=== PATIENT | female | born 1950 | race Caucasian/White ===

== ENCOUNTER 2017-04-24 18:30 | Emergency (ER) | payer OTHER ==
[2017-04-24 18:43] VITALS: TEMP 97.7
[2017-04-24] MEDS ORDERED: ACETAMINOPHEN 500 MG TAB PO ONE (19:32)
--- NOTE | 2017-04-24 19:39 | EDPHY ---
HPI/HX/ROS/PE/MDM Narrative: CHIEF COMPLAINT: Head injury HISTORY OF PRESENT ILLNESS: The patient is a 66 y/o female with a history of breast cancer and tension headaches complaining of headache, neck pain, nausea, and light sensitivity after a fall from standing. She was outside yesterday when a dog struck her, knocking her to the ground. She fell backward striking the back of her head on concrete. She denies loss of consciousness. After the incident she developed a headache and neck pain. Today, she woke up without a headache. When she stood up she began feeling unsteady and nauseated. She soon developed a headache (rated 4-5/10) and neck pain. She has associated light sensitivity. She denies weakness, numbness, tingling, or shooting sensation in the extremities, abdominal pain, vomiting, or other associated symptoms. Her symptoms are worse with movement or reading. Her symptoms improve with sleep. No fever, chills, chest pain, shortness of breath, palpitations, vomiting, diarrhea, urinary complaints, lightheadedness. REVIEW OF SYSTEMS: Aside from elements discussed in the HPI, a comprehensive 10-point review of systems was reviewed and is negative. PAST MEDICAL HISTORY: Breast cancer, tension headaches. No anticoagulants. SOCIAL HISTORY: at bedside, lives in [place], retired, former physical therapist VITAL SIGNS: Reviewed by me GENERAL: Well-developed, well-nourished, resting comfortably in no respiratory distress. HEENT: Tender hematoma on the occipital region. No laceration or abrasion. Eyes : No icterus, no injection. PERRL, EOMI. Mouth: moist mucous membranes. No erythema or lesions. Neck: No midline tenderness, tenderness paraspinally bilaterally, supple with no adenopathy. Patient moving neck without difficulty prior to exam. LUNGS: Clear to auscultation bilaterally, no wheezes, rhonchi or rales. CARDIAC: Regular rate and rhythm, no rubs, murmurs or gallops. ABDOMEN: Soft, nontender, nondistended, bowel sounds normal. BACK: No CVA tenderness. EXTREMITIES: No trauma. No edema. Range of motion is normal throughout. NEURO: Alert and oriented x3, cranial nerves are intact throughout, normal motor , normal sensation. Normal finger to nose and heel to razo. Normal gait. SKIN: Warm and dry, no rash. PSYCHIATRIC: Normal mentation, no agitation ED Course: The patient presents with headache, neck pain, nausea, and light sensitivity after a fall yesterday. She denies loss of consciousness. On exam she does not have any neurologic deficits. She had a hematoma to the occipital region and paraspinal tenderness. Plan for CT imaging. Pain medication and anti-nausea or vertigo medication as needed for symptoms. CTs Neg for acute process. DW patient. She is reassured. Will take tylenol as needed. Referred to Dr Márquez for concussion follow up as needed. The patient agrees to this course of action. MDM: Differential diagnosis for the patient's injury was considered including but not limited to contusion, abrasion, laceration, head injury, cervical spine injury, intracranial hemorrhage, cerebral contusion, concussion, skull fracture. - Data Points Imaging Results: Impression: Normal noncontrast CT of the brain. Results called to Dr. Soni Villareal at 8:00 PM at the time of the interpretation. Dictated By: Abdullahi Mijares MD CT Cervical Spine: Impression: Multilevel cervical degenerative disk disease. Minimal remote compression deformity of the superior endplate of T1. No acute fracture or subluxation identified. Results called to Dr. Villareal at 8:00 p.m. Dictated By : Abdullahi Mijares MD Medications Given: Discontinued Medications Acetaminophen (Tylenol) 1,000 mg PO EDNOW ONE Stop: 04/24/17 19:33 Last Admin: 04/24/17 20:03 Dose: 1,000 mg General Time Seen by Provider: 04/24/17 19:11 Initial Vital Signs: Initial Vital Signs Temperature (C) 36.5 C 04/24/17 18:39 Heart Rate 67 04/24/17 18:39 Respiratory Rate 18 04/24/17 18:39 Blood Pressure 129/77 H 04/24/17 18:39 O2 Sat (%) 98 04/24/17 18:39 O2 Delivery Mode Room Air Allergies/Adverse Reactions: codeine Allergy (Verified 04/24/17 18:56) NSAIDS (Non-Steroidal Anti-Inflamma Allergy (Verified 04/24/17 18:56) Sulfa (Sulfonamide Antibiotics) Allergy (Verified 04/24/17 18:38) Home Medications: Medication Instructions Recorded Multiple Vitamin 04/24/17 Departure - Departure Disposition: Home, Routine, Self-Care Clinical Impression: Concussion Qualifiers: Encounter type: initial encounter Loss of consciousness presence/duration: without LOC Qualified Code(s): S06.0X0A - Concussion without loss of consciousness, initial encounter Headache Qualifiers: Headache type: post-traumatic Headache chronicity pattern: acute headache Intractability: not intractable Qualified Code(s): G44.319 - Acute post- traumatic headache, not intractable Condition: Good Instructions: Concussion (ED), Post Concussion Syndrome (ED) Additional Instructions: 1. Take Tylenol as needed for pain. 2. "Brain rest" - Limit screen time while symptoms are present. This includes phones, computers, TV, video games, etc. 3. Physical rest while symptoms are present. Avoid any activities that could lead to a repeat head injury for at least two weeks or longer if symptoms persist. Ex. no contact sports, skiing, bicycling. 4. Slowly advance activities as tolerated. If you begin to experience headaches , confusion, sensitivity to light, nausea, or other worsening of symptoms you need to reduce your activities. Take time off from classes if you are able to. 5. Follow up with Dr. Márquez, head injury specialist, for symptoms that persist for more than 10 days. 6. Return to the ED for severe pain, inability to walk, weakness or numbness on one side of your body, or other worsening of condition. Referrals: ANTONIA ALEXANDER [Other] - As per Instructions Meaghan Márquez MD [Medical Doctor] - As per Instructions Report Scribed for: Soni Villareal Report Scribed by: Autumn Hernandez Date of Report: 04/24/17 Time of Report: 19:40 Physician Review and Approval Statement: Portions of this note were transcribed by a registered medical assistant. I personally performed a history, physical exam, medical decision making, and confirmed accuracy of information the transcribed note.
[2017-04-24 20:30] VITALS: BP 145/80
[2017-04-24 21:10] VITALS: PULSE 70; RESP 16; O2SAT 96
== END 2017-04-24 21:08 | disposition home or self-care (01) ==
DX: S06.0X0A Concussion without loss of consciousness, initial encounter (principal); G44.319 Acute post-traumatic headache, not intractable; Z85.3 Personal history of malignant neoplasm of breast; W01.198A Fall on same level from slipping, tripping and stumbling with subsequent striking against other object, initial encounter

== ENCOUNTER 2017-04-30 11:16 | Emergency (ER) | payer OTHER ==
[2017-04-30 11:24] VITALS: RESP 16; TEMP 98.1
--- NOTE | 2017-04-30 11:54 | EDPHY ---
HPI/HX/ROS/PE/MDM Narrative: CHIEF COMPLAINT: Headache HPI: This patient is a non-anticoagulated 66 y/o female complaining of worsening headache following a head injury. She was evaluated in this emergency department 04/24/17 following a fall the previous day in which she struck the back of her head on concrete. CT imaging at that time was negative for acute processes. She was discharged with a referral to a concussion specialist for further evaluation and treatment. Yesterday she felt well and had been improving each day since the incident so resumed some of her normal activities. Today, she woke around 2-3am with pain in her neck and head. The discomfort is in her middle and upper trapezius muscles as well as her occipital area. She endorses a painful sensation in her scalp as well. This kept her awake until 5am , when she took Tylenol. She was able to sleep again from 6-8am but her headache continued after this. She feels better if she relaxes in a dark room. 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 She has not been reevaluated by a primary care physician yet, but has an appointment with Dr. Márquez, concussion specialist, this . REVIEW OF SYSTEMS: Aside from elements discussed in the HPI, a comprehensive 10-point review of systems was reviewed and is negative. PMH: Breast cancer, tension headaches. No anticoagulants, but has chronic low INR. SOCIAL HISTORY: at bedside, lives in [place], retired, former physical therapist PHYSICAL EXAM: General:Patient is alert, in no acute distress. ENT:Eyes are normal to inspection. ENT inspection normal. Neck: Normal inspection. Full range of motion. Respiratory:No respiratory distress. Breath sounds normal bilaterally. Cardiovascular: Regular rate and rhythm. Strong peripheral pulses. Normal cap refill. Abdomen:The abdomen is nontender to palpation. There are no peritoneal signs. There are normal bowel sounds. Back: Normal to inspection. No tenderness to palpation. Skin: Normal color. No rash. Warm and dry. Extremities: Normal appearance. Full range of motion. Neuro: Oriented x3. Normal motor function. Normal sensory function. No pronator drift. ED Course: 66 y/o female with recent head injury 04/24/17 presents with worsening headache. Patient is neurologically intact on exam. Discussed risks and benefits of repeat CT head. Given negative CT 04/24, plan for conservative medical treatment at this time. The patient is comfortable with this plan, especially as she has had many prior CTs with her history of breast cancer. Discussed pain management. The patient states she reacts poorly to NSAID medications. IV established. Plan to administer 10mg IV Reglan, 25mg IV Benadryl , and 1L IV NS for symptom relief. Plan for labs including CBC, BMP. Laboratory studies unremarkable. 13:30 Reassessed patient. Patient's headache is resolved following medication administration. Plan to d/c home in good condition. She will follow up with concussion specialist and primary care as planned. MDM: This patient presents with symptoms that appear consistent with post-concussion syndrome. She has a normal neurologic exam and no report of deficit. Wee had an extensive discussion about further ED workup, to include likely repeat CT imaging to rule out additional trauma, but patient declines this. She is now asymptomatic after reglan and IVNS. She has an appointment in place to follow- up with Dr. Márquez regarding her symptoms. She promises to return for change in condition or failure to improve. - Data Points Laboratory Results: Laboratory Results 04/30/17 12:20 04/30/17 12:20 04/30/17 04/30/17 12:20 12:20 WBC 4.09 10^3/uL 10^3/uL (3.80-9.50) RBC 4.80 10^6/uL 10^6/uL (4.18-5.33) Hgb 13.8 g/dL g/dL (12.6-16.3) Hct 41.8 % % (38.0-47.0) MCV 87.1 fL fL (81.5-99.8) MCH 28.8 pg pg (27.9-34.1) MCHC 33.0 g/dL g/dL (32.4-36.7) RDW 13.5 % % (11.5-15.2) Plt Count 137 10^3/uL L 10^3/uL (150-400) MPV 10.8 fL fL (8.7-11.7) Neut % (Auto) 53.3 % % (39.3-74.2) Lymph % (Auto) 36.9 % % (15.0-45.0) [place] % (Auto) 7.1 % % (4.5-13.0) Eos % (Auto) 2.0 % % (0.6-7.6) Baso % (Auto) 0.5 % % (0.3-1.7) Nucleat RBC Rel Count 0.0 % % (0.0-0.2) Absolute Neuts (auto) 2.18 10^3/uL 10^3/uL (1.70-6.50) Absolute Lymphs (auto) 1.51 10^3/uL 10^3/uL (1.00-3.00) Absolute Monos (auto) 0.29 10^3/uL L 10^3/uL (0.30-0.80) Absolute Eos (auto) 0.08 10^3/uL 10^3/uL (0.03-0.40) Absolute Basos (auto) 0.02 10^3/uL 10^3/uL (0.02-0.10) Absolute Nucleated RBC 0.00 10^3/uL 10^3/uL (0-0.01) Immature Gran % 0.2 % % (0.0-1.1) Immature Gran # 0.01 10^3/uL 10^3/uL (0.00-0.10) Sodium 142 mEq/L mEq/L (134-144) Potassium 4.0 mEq/L mEq/L (3.5-5.2) Chloride 104 mEq/L mEq/L (97-110) Carbon Dioxide 27 mEq/l mEq/l (22-31) Anion Gap 11 mEq/L mEq/L (8-16) BUN 13 mg/dL mg/dL (7-23) Creatinine 0.6 mg/dL mg/dL (0.6-1.0) Estimated GFR > 60 Glucose 96 mg/dL mg/dL (70-100) Calcium 10.3 mg/dL mg/dL (8.5-10.4) Medications Given: Discontinued Medications Diphenhydramine HCl (Benadryl Injection) 25 mg IVP EDNOW ONE Stop: 04/30/17 12:10 Last Admin: 04/30/17 12:24 Dose: 25 mg Sodium Chloride (Ns) 1,000 mls @ 0 mls/hr IV ONCE ONE; Wide Open PRN Reason: Protocol Stop: 04/30/17 12:10 Last Admin: 04/30/17 12:23 Dose: 1,000 mls Metoclopramide HCl (Reglan Injection) 10 mg IVP EDNOW ONE Stop: 04/30/17 12:10 Last Admin: 04/30/17 12:25 Dose: 10 mg General Time Seen by Provider: 04/30/17 11:40 Initial Vital Signs: Initial Vital Signs Temperature (C) 36.7 C 04/30/17 11:21 Heart Rate 77 04/30/17 11:21 Respiratory Rate 16 04/30/17 11:21 Blood Pressure 149/77 H 04/30/17 11:21 O2 Sat (%) 97 04/30/17 11:21 O2 Delivery Mode Room Air Allergies/Adverse Reactions: codeine Allergy (Verified 04/30/17 11:20) NSAIDS (Non-Steroidal Anti-Inflamma Allergy (Verified 04/30/17 11:20) Sulfa (Sulfonamide Antibiotics) Allergy (Verified 04/30/17 11:20) Home Medications: Medication Instructions Recorded Multiple Vitamin 04/24/17 Departure - Departure Disposition: Home, Routine, Self-Care Clinical Impression: Post concussion syndrome Condition: Good Instructions: Post Concussion Syndrome (ED) Additional Instructions: 1. Follow up with Dr. Márquez and your primary care provider as planned. 2. Return to the Emergency Department for severe headache, vomiting, vision changes, confusion, fever or other concerns. Referrals: ANTONIA ALEXANDER [Other] - As per Instructions Meaghan Márquez MD [Medical Doctor] - As per Instructions Report Scribed for: Isaac Sandhu Report Scribed by: Tiki Chacon Date of Report: 04/30/17 Time of Report: 12:04 Physician Review and Approval Statement: Portions of this note were transcribed by an ED scribe. I personally performed the history, physical exam, and medical decision making; and confirm the accuracy of the information in the transcribed note.
[2017-04-30] MEDS ORDERED: METOCLOPRAMIDE 10 MG/2 ML VIAL IVP ONE (12:09)
[2017-04-30] MEDS ORDERED: NS 1,000 ML IV ONE (12:09)
[2017-04-30 12:29] LABS: PLATELET COUNT 137 10^3/uL (150-400)
[2017-04-30 12:36] VITALS: PULSE 76
[2017-04-30 13:51] VITALS: BP 112/60; O2SAT 96
== END 2017-04-30 13:51 | disposition home or self-care (01) ==
DX: G44.309 Post-traumatic headache, unspecified, not intractable (principal); F07.81 Postconcussional syndrome; E86.9 Volume depletion, unspecified; Z85.3 Personal history of malignant neoplasm of breast
CPT/HCPCS: 96361; 96374; 96375; 99284; J1200; J2765

== ENCOUNTER 2017-09-04 13:57 | Emergency (ER) | payer OTHER ==
--- NOTE | 2017-09-04 14:20 | EDPHY ---
H & P Stated Complaint: mechanical fall hit head no loc--f/h lac, L wrist pain Source: Patient - Medical/Surgical History Hx Asthma: No Hx Chronic Respiratory Disease: No Hx Diabetes: No Hx Cardiac Disease: No Hx Renal Disease: No Hx Cirrhosis: No Hx Alcoholism: No Hx HIV/AIDS: No Hx Splenectomy or Spleen Trauma: No Other PMH: breast cancer. pelvic fx - Social History Smoking Status: Never smoked Time Seen by Provider: 09/04/17 14:20 HPI/ROS: HPI CHIEF COMPLAINT: Mechanical trip and fall, head injury, head laceration HISTORY OF PRESENT ILLNESS: Patient very pleasant 67-year-old female, she presents emergency room by private vehicle after she tripped and fell at the [facility]. States she tripped over grandson. She fell on her outstretched hands. She now complains of left lateral wrist pain. Left elbow pain. Additionally she had head strike against the pavement. She sustained a left forehead laceration. No LOC. She arrives by private vehicle GCS 15, alert or x4. Denies any chest pain or shortness of breath. Patient reports her tetanus shot is up-to-date. Past Medical History: Breast cancer, concussion Past Surgical History: Bilateral mastectomy Social History: Denies drug use alcohol tobacco. Family History: Noncontributory ROS REVIEW OF SYSTEMS: A comprehensive 10 point review of systems is otherwise negative aside from elements mentioned in the history of present illness. Exam Constitutional appears well nontoxic triage nursing summary reviewed, vital signs reviewed, awake/alert. GCS 15. Eyes normal conjunctivae and sclera, EOMI, PERRLA. HENT head/neck: Left forehead laceration 3 cm x 2 cm, no midline cervical spine pain, otherwise atraumatic,, moist mucus membranes, no epistaxis, neck supple/ no meningismus, no raccoon eyes. Respiratory clear to auscultation bilaterally, normal breath sounds, no respiratory distress, no wheezing. Cardiovascular rate normal, regular rhythm, no murmur, no edema, distal pulses normal. Gastrointestinal soft, non-tender, no rebound, no guarding, normal bowel sounds, no distension, no pulsatile mass. Genitourinary no CVA tenderness. Musculoskeletal left wrist and left elbow: Neurovascular intact, mild tender palpation over the left lateral elbow and left lateral wrist. No snuffbox tenderness. Full range of motion. No significant swelling. no midline vertebral tenderness, full range of motion, no calf swelling, no tenderness of extremities, no meningismus, good pulses, neurovascularly intact. Skin pink, warm, & dry, no rash, skin atraumatic. Neurologic GCS 15, awake, alert and oriented x 3, AAOx3, moves all 4 extremities equally, motor intact, sensory intact, CN II-XII intact, normal cerebellar, normal vision, normal speech. Psychiatric normal mood/affect. Heme/Lymph/Immune no lymphadenopathy. Differential Diagnosis: Includes but is not limited to in a particular order multiple contusions, wrist sprain, elbow contusion, fracture, closed head injury , concussion, intracranial bleed, skull fracture, laceration Medical Decision Making: Plan for this patient CT scan head without contrast for trauma, x-ray left elbow, x-ray left wrist. Laceration will need to be repaired Re-evaluation: X-ray of the left wrist, x-ray of the left elbow, reviewed. Joint effusion of the elbow. Patient be splinted posterior long-arm splint and sling for immobilization. She will need to follow up with Orthopedics. CT scan of the head without contrast negative for acute traumatic injury. No bleed. Patient be placed in a posterior long-arm splint for the elbow effusion. Patient need to follow up with Orthopedics. I have discussed the results of her x-rays and CT. She is comfortable this plan. (Donell Portillo) Constitutional: Initial Vital Signs Temperature (C) 36.9 C 09/04/17 14:01 Heart Rate 70 09/04/17 14:01 Respiratory Rate 16 09/04/17 14:01 Blood Pressure 137/72 H 09/04/17 14:01 O2 Sat (%) 97 09/04/17 14:01 O2 Delivery Mode Room Air Allergies/Adverse Reactions: codeine Allergy (Verified 04/30/17 11:20) NSAIDS (Non-Steroidal Anti-Inflamma Allergy (Verified 04/30/17 11:20) Sulfa (Sulfonamide Antibiotics) Allergy (Verified 04/30/17 11:20) Home Medications: Medication Instructions Recorded Multiple Vitamin 04/24/17 Medical Decision Making Procedures: Procedure: Laceration repair. Verbal consent was obtained from the patient. The 1 cm stellate, complex, deep laceration on the left islam was anesthetized in the usual fashion using 6 Ml 0.5% lidocaine with epinephrine. The wound was irrigated, draped and explored to its base with a gloved finger. There were no deep structures involved. No tendon injury was identified. The wound was repaired with #2 buried sutures 6- Vicryl and running suture 6-0 Vicryl to close cutaneous layer. Good hemostasis was achieved and patient tolerated procedure well. Steri-Strips applied. The procedure was performed by myself. (Ave Benitez) Departure - Departure Disposition: Home, Routine, Self-Care Clinical Impression: Left wrist sprain Qualifiers: Encounter type: initial encounter Qualified Code(s): S63.502A - Unspecified sprain of left wrist, initial encounter Laceration of head Qualifiers: Encounter type: initial encounter Location of open wound of head: other part of head Foreign body presence: without foreign body Qualified Code(s): S01.81XA - Laceration without foreign body of other part of head, initial encounter Concussion Qualifiers: Encounter type: initial encounter Loss of consciousness presence/duration: without LOC Qualified Code(s): S06.0X0A - Concussion without loss of consciousness, initial encounter Contusion, elbow Qualifiers: Encounter type: initial encounter Laterality: left Qualified Code(s): S50.02XA - Contusion of left elbow, initial encounter Condition: Good Instructions: Laceration (ED), Concussion (ED), Wrist Sprain (ED) Additional Instructions: 1. Please follow up with Orthopaedics 2. Return emergency room if you have worsening symptoms includes severe headache , vomiting or not feeling well. 3. Follow up with her primary care doctor. 4. Sutures to be removed in 7 days. Referrals: ANTONIA ALEXANDER [Other] - As per Instructions Meaghan Márquez MD [Medical Doctor] - As per Instructions Leonides Kurtz MD [Medical Doctor] - As per Instructions
[2017-09-04 17:06] VITALS: BP 119/77
--- NOTE | 2017-09-04 18:37 | ASMTCAGE ---
CAGE Additional Comments SBIRT incorrectly documented; pt would have been able to participate in screening. MD report states pt denies drug or ETOH use. Date Signed: 09/04/2017 06:37 PM Electronically Signed By:Yany Méndez RN
== END 2017-09-04 17:05 | disposition home or self-care (01) ==
PROC: 0HQ1XZZ Repair Face Skin, External Approach (ICD-10-PCS; principal; 2017-09-04)
DX: S01.81XA Laceration without foreign body of other part of head, initial encounter (principal); S06.0X0A Concussion without loss of consciousness, initial encounter; S50.02XA Contusion of left elbow, initial encounter; S63.502A Unspecified sprain of left wrist, initial encounter; Z85.3 Personal history of malignant neoplasm of breast; W01.198A Fall on same level from slipping, tripping and stumbling with subsequent striking against other object, initial encounter; Y92.834 Zoological garden (Zoo) as the place of occurrence of the external cause; Y99.8 Other external cause status

== ENCOUNTER 2017-10-06 18:42 | Emergency (ER) | payer OTHER ==
[2017-10-06 18:50] VITALS: BP 121/68
--- NOTE | 2017-10-06 19:26 | EDPHY ---
H & P Smoking Status: Never smoked Time Seen by Provider: 10/06/17 19:10 HPI/ROS: CHIEF COMPLAINT: Swelling left forehead HISTORY OF PRESENT ILLNESS: 67-year-old female presents to the emergency department with concerns about swelling to the left side of her forehead. She was seen in the emergency department 1 month ago and had a laceration that was repaired according to the note with Vicryl sutures. The patient did not return for suture removal as she was told that the sutures would absorb. She states that she pulled out of piece of "clear" thread after the wound had healed, few weeks ago. She states over last few days she has noticed some swelling. Minimal pain associated with this. No drainage. ROS: No fevers, chills, redness. (Alyssa Grey) Past Medical/Surgical History: Breast cancer (Alyssa Grey) Social History: (Alyssa Grey) Physical Exam: On examination the patient has healed wound to the left anterior aspect of the forehead just above the left eyebrow. It is fluctuant. There is no surrounding redness. Purulent drainage was expressed from the most superior aspect of the wound. Patient had no pain associated with this. No signs of cellulitis. (Alyssa Grey) Constitutional: Initial Vital Signs Temperature (C) 36.7 C 10/06/17 18:45 Heart Rate 69 10/06/17 18:45 Respiratory Rate 18 10/06/17 18:45 Blood Pressure 121/68 H 10/06/17 18:45 O2 Sat (%) 95 10/06/17 18:45 O2 Delivery Mode Room Air Allergies/Adverse Reactions: codeine Allergy (Verified 10/06/17 18:44) NSAIDS (Non-Steroidal Anti-Inflamma Allergy (Verified 10/06/17 18:44) Sulfa (Sulfonamide Antibiotics) Allergy (Verified 10/06/17 18:44) Home Medications: Medication Instructions Recorded Multiple Vitamin 04/24/17 MDM/Departure - MDM ED Course/Re-evaluation: 67-year-old female presents to the emergency department with concerns of swelling to her wound on her left forehead. There is no signs of cellulitis. The patient did have purulent drainage that was expressed from the wound which is likely related to stitch abscess. I recommended oral Keflex, however the patient declined. I encouraged warm compresses. She will apply antibiotic ointment. She was instructed to return to the emergency department if she developed recurring swelling, purulent drainage, fevers, or if she felt worse in any way. She was comfortable with this plan. (Alyssa Grey) I did not see this patient while she was in the emergency department. However her care was discussed with the PA while the patient was in the department. I agree with treatment plan and management (Jim Keith) - Depart Disposition: Home, Routine, Self-Care Clinical Impression: Infection involving stitch with abscess Condition: Good Instructions: Acute Wounds (ED) Additional Instructions: Apply warm compresses as discussed for 15-20 minutes every 2-3 hours especially today and tomorrow. Apply bacitracin or other antibiotic ointment specially over the next 2 days. Return to the emergency department if it becomes more painful, if you develop a fever, if you develop redness around the area, or if you feel worse in any way. Referrals: Natalia Kingsley MD [Medical Doctor] - As per Instructions (Internal medicine provider in [place])
== END 2017-10-06 19:29 | disposition home or self-care (01) ==
DX: T81.4XXA Infection following a procedure, initial encounter (principal); Z85.3 Personal history of malignant neoplasm of breast; Y82.9 Unspecified medical devices associated with adverse incidents

== ENCOUNTER → 2018-09-11 | Outpatient (CLI) | payer OTHER | LOC: BMCIMAGING 11:05 | PROVIDERS: ATTEND Family Medicine | DX: M79.661 Pain in right lower leg (principal); M25.551 Pain in right hip ==

== ENCOUNTER → 2018-10-04 | Outpatient (CLI) | payer OTHER | LOC: FIMAGING 09:24 ==